=== PATIENT | male | born 1955 | race Caucasian/White ===

== ENCOUNTER 2023-08-23 21:55 | Inpatient (IN) | payer OTHER, MEDICAID ==
[~2023-08-23] VITALS: Ht 170.2 cm; Wt 70.3 kg
[2023-08-24] MEDS ORDERED: MORPHINE SULFATE INJ 2 MG/ml SYRG IV PRN ×2 (00:15)
[2023-08-24] MEDS ORDERED: ACETAMINOPHEN 325 MG TAB PO PRN (00:15)
[2023-08-24] MEDS ORDERED: NITROGLYCERIN 0.4 MG SL TAB SL PRN (00:15)
[2023-08-24] MEDS ORDERED: ONDANSETRON HCL 4 MG/2 ML VIAL IV PRN (00:15)
[2023-08-24 01:09] VITALS: BP 123/73; PULSE 73; RESP 17; TEMP 98.2; O2SAT 97
[2023-08-24] MEDS: SODIUM CHLORIDE 0.9% 1,000 ML IV SCH ×3 (03:15→20:15)
[2023-08-24 05:00] VITALS: BP 133/69; PULSE 82; RESP 20; TEMP 98.1; O2SAT 94
[2023-08-24 05:36] LABS: Anion Gap 9 (5-15); Carbon Dioxide 24 mmol/L (20-30); Chloride 102 mmol/L (98-107); Potassium 3.7 mmol/L (3.5-5.1); Sodium 135 mmol/L (136-145)
[2023-08-24 05:37] LABS: Calcium 8.8 mg/dL (8.5-10.1); Hematocrit 35.9 % (41.0-53.0); Hemoglobin 12.1 g/dL (13.5-17.5); Mean Corpuscular Hemoglobin 28.4 pg (28.0-32.0); Mean Corpuscular Hgb Conc. 33.7 g/dL (32.0-36.0); Mean Corpuscular Volume 84.2 fL (80.0-100.0); Red Blood Cells 4.26 10^6/uL (4.5-5.90); Red Cell Distribution Width 15.6 % (11.8-14.3); White Blood Cell 6.6 10^3/uL (4.4-10.8)
[2023-08-24 05:39] LABS: Basophils % (manual) 0 (0.0-2.0); Blast Cells 0; Metamyelocytes % 0; Myelocytes % 0; Promyelocytes % 0; Reactive Lymphocytes 0
[2023-08-24 05:42] LABS: BUN/Creatinine Ratio 19.6 (10.0-20.0); Blood Urea Nitrogen 36 mg/dL (9-23); Glucose 92 mg/dL (74-106)
[2023-08-24 07:34] LABS: Band Neutrophils % (manual) 55; Eosinophils % (manual) 1 (0-7); Lymphocytes % (manual) 13 (10.0-50.0); Monocytes % (manual) 20 (0-12); Platelet Estimate Adequate
[2023-08-24 08:00] VITALS: RESP 18; O2SAT 96
[2023-08-24] MEDS ORDERED: GASTROGRAFIN 120 ML SOL ONE (08:26)
[2023-08-24 09:00] VITALS: BP 130/76; PULSE 81; RESP 19; TEMP 98.1; O2SAT 96
[2023-08-24] MEDS: PANTOPRAZOLE 40 MG/10 ML VIAL INJ IV SCH (09:05)
[2023-08-24] MEDS: ENOXAPARIN SOD 30 MG/0.3 ML SYRINGE SC SCH (10:44)
[2023-08-24 13:00] VITALS: BP 140/68; PULSE 77; RESP 19; TEMP 98.1; O2SAT 95
[2023-08-24 16:48] VITALS: BP 131/81; PULSE 76; RESP 19; TEMP 97.9; O2SAT 92
[2023-08-25] MEDS: SODIUM CHLORIDE 0.9% 1,000 ML IV SCH (06:15)
[2023-08-25 06:23] LABS: Hematocrit 33.8 % (41.0-53.0); Hemoglobin 11.1 g/dL (13.5-17.5); Mean Corpuscular Hemoglobin 27.3 pg (28.0-32.0); Mean Corpuscular Hgb Conc. 32.8 g/dL (32.0-36.0); Mean Corpuscular Volume 83.3 fL (80.0-100.0); Red Blood Cells 4.06 10^6/uL (4.5-5.90); Red Cell Distribution Width 15.3 % (11.8-14.3); White Blood Cell 5.3 10^3/uL (4.4-10.8)
[2023-08-25 06:35] LABS: Basophils % (manual) 0 (0.0-2.0); Blast Cells 0; Metamyelocytes % 0; Myelocytes % 0; Promyelocytes % 0; Reactive Lymphocytes 0
[2023-08-25 06:36] LABS: Chloride 108 mmol/L (98-107); Potassium 3.3 mmol/L (3.5-5.1); Sodium 138 mmol/L (136-145)
[2023-08-25 06:37] LABS: Anion Gap 8 (5-15); Calcium 8.6 mg/dL (8.5-10.1); Carbon Dioxide 22 mmol/L (20-30)
[2023-08-25 06:42] LABS: Glucose 95 mg/dL (74-106)
[2023-08-25 06:43] LABS: BUN/Creatinine Ratio 17.6 (10.0-20.0); Blood Urea Nitrogen 19 mg/dL (9-23)
[2023-08-25 08:04] LABS: Band Neutrophils % (manual) 3; Eosinophils % (manual) 1 (0-7); Lymphocytes % (manual) 27 (10.0-50.0); Monocytes % (manual) 9 (0-12); Platelet Estimate Adequate
[2023-08-25 08:52] LABS: Hepatitis B Surface Antigen Negative (Negative)
[2023-08-25] MEDS: ENOXAPARIN SOD 30 MG/0.3 ML SYRINGE SC SCH (08:58)
[2023-08-25] MEDS: PANTOPRAZOLE 40 MG/10 ML VIAL INJ IV SCH (08:58)
[2023-08-25 09:00] VITALS: BP 148/70; PULSE 63; RESP 19; TEMP 98.6; O2SAT 97
[2023-08-25 09:13] LABS: Hepatitis C Antibody Negative (Negative)
[2023-08-25 13:35] VITALS: BP 148/79; PULSE 82; RESP 19; TEMP 98.1; O2SAT 96
[2023-08-25 15:35] VITALS: BP 132/75; PULSE 82; RESP 19; TEMP 36.7; O2SAT 96
[2023-08-26] MEDS ORDERED: ENOXAPARIN SOD 40 MG/0.4 ML SYRINGE SC SCH (10:00)
== END 2023-08-25 16:08 | disposition home or self-care (01) | DRG 388 ==
LOC: WEST WING 22:12 → UNDOADMIN 22:12 → WEST WING 08-24 00:16
PROVIDERS: ADMIT Nurse Practitioner Family; ATTEND Internal Medicine
PROC: 0D9670Z Drainage of Stomach with Drainage Device, Via Natural or Artificial Opening (ICD-10-PCS; principal; 2023-08-24)
DX: K56.609 Unspecified intestinal obstruction, unspecified as to partial versus complete obstruction (principal); N17.0 Acute kidney failure with tubular necrosis; K21.9 Gastro-esophageal reflux disease without esophagitis; Z88.0 Allergy status to penicillin; Z81.8 Family history of other mental and behavioral disorders; Z72.0 Tobacco use
CPT/HCPCS: 36415; 71046; 74021; 80048; 85007; 85027; 86803; 87340; C9113; G0378